=== PATIENT | female | born 1940 | race Caucasian/White ===

== ENCOUNTER → 2016-08-20 | Outpatient (CLI) | payer MEDICARE, OTHER ==
[~2016-08-20] MED LIST: ACETAMINOPHEN500 M4 PO; ASPIRIN81 M1 PO; ATENOLOL PO; ATENOLOL25 MG PO; D3 DOTS2000 UNIT PO; FIBER625 M2 PO; FISH OIL 1,001000 M1 PO; FISH OIL 1,2001 EAC1 PO; GENTEAL PM OIN3.5 GM OU; LIPITOR40 MG PO; LOW DOSE ASPIRI81 M1 PO; METAMUCIL PO; MULTI VITAMIN1 EACH PO; MULTIVITAMIN1 UDCAP PO; NORVASC2.5 MG PO; OMEPRAZOLE40 M1 PO; OPTIVE EYE DROPS5 ML OU; PAIN RELIEF500 MG PO; PRILOSEC20 M1 PO; TRAMADOL HCL50 M2 PO; VAGIFEM10 MCG VG; VESICARE PO; VITAMIN D400 UNI2 PO
--- NOTE | ~2016-08-20 | MY11 ---
[facility] A Service of [facility] RADIOLOGY TEXT RESULTS PATIENT: ALLEN PEÑA LOCATION: [facility] : 44 UNIT #: [id number] AGE: [address]: Tegan Warren MD SEX: F ORDER DR: [id number] [facility] [address] [place], [place] [address] [id number] O MR#: [id number] Acc #: [id number] NAME: ALLEN PEÑA : 1940 SEX: F STUDY DATE/TIME: 08/20/2016 10:28 UNIT: [facility] ROOM: STUDY DESCRIPTION: MY Mammogram Screening Dig [place] Attending Physician: Tegan Warren M.D. Referring Physician: Tegan Warren M.D. Ordering Physician: Tegan Warren M.D. Primary Care Physician: Tegan Warren M.D. MEDICAL IMAGING REPORT This report is preliminary unless electronic signature is present EXAM Digital screening mammogram 08/20/2016. HISTORY 76-year-old woman no risk elevation. Annual screen. COMPARISON Mammograms date to 02/10/2006 with most recent 08/17/2015 FINDINGS Digital imaging of each breast was completed utilizing a two-view examination of each breast in craniocaudal and mediolateral-oblique projections. Review and interpretation of digital mammograms include a second review in conjunction with FDA-approved CAD device. There is a normal parenchymal presentation bilaterally consistent with the patient's age. There are no breast masses imaged and no parenchymal asymmetry is visualized. There are no suspicious microcalcifications and I see no focal architectural disturbance. IMPRESSION Negative screening digital mammogram. One-year followup recommended. Patients over the age of 40 are entered into a reminder system with target due date for the next mammogram. A result letter will also be sent to the patient. BIRADS: 1 Negative ADDENDUM Breast parenchyma is fatty replaced Dictated by... Rhett Velazco M.D. [facility] A Service [facility] RADIOLOGY TEXT RESULTS PATIENT: ALLEN PEÑA LOCATION: [facility] : 42 UNIT #: [id number] AGE: [address]: Tegan Warren MD SEX: F ORDER DR: THIS IS AN ELECTRONICALLY VERIFIED REPORT Rhett Velazco M.D. at 08/20/2016 12:[address] TD: 08/20/2016 11:38 JOB #: [id number] MEDICAL IMAGING REPORT Page 1 of 1 COPY
== END | disposition home or self-care (01) ==
LOC: CWCC 10:02
DX: Z12.31 Encounter for screening mammogram for malignant neoplasm of breast (principal); R92.8 Other abnormal and inconclusive findings on diagnostic imaging of breast
CPT/HCPCS: G0202

== ENCOUNTER 2017-01-31 10:47 | Emergency (ER) | payer MEDICARE, OTHER ==
[~2017-01-31] VITALS: Ht 157.5 cm; Wt 70.3 kg
--- NOTE | ~2017-01-31 | CR170 ---
[facility] A Service of [facility] RADIOLOGY TEXT RESULTS PATIENT: ALLEN PÑEA LOCATION: [facility] : 44 UNIT #: [id number] AGE: [address]: Juana Nunes APRN SEX: F ORDER DR: [id number] [facility] [address] [place], [place] [address] [id number] E MR#: [id number] Acc #: [id number] NAME: ALLEN PEÑA : 1940 SEX: F STUDY DATE/TIME: 01/31/2017 11:31 UNIT: [facility] ROOM: STUDY DESCRIPTION: CR Knee 2 Views Rt Attending Physician: Juana Nunes A.P.R.N. Ordering Physician: Ed Doctor [id number] [facility] Primary Care Physician: Yair Merritt M.D. MEDICAL IMAGING REPORT This report is preliminary unless electronic signature is present EXAM Right knee INDICATIONS Right knee pain. 1-week duration. FINDINGS 2 views of the right knee without comparison. There is no acute fracture dislocation or effusion. No foreign body. There is mild osteoarthritis of the knee. IMPRESSION No acute findings. Dictated by... Kelvin Landrum M.D. THIS IS AN ELECTRONICALLY VERIFIED REPORT Kelvin Landrum M.D. at 02/01/2017 1:25 PM RPNacho/bartolo TD: 02/01/2017 05:05 JOB #: [id number] MEDICAL IMAGING REPORT Page 1 of 1 COPY
== END 2017-01-31 12:35 | disposition home or self-care (01) ==
LOC: CED 10:47 → CFTX 10:47
DX: M25.561 Pain in right knee (principal); I10 Essential (primary) hypertension; R78.5 Finding of other psychotropic drug in blood; Z90.710 Acquired absence of both cervix and uterus; Z79.899 Other long term (current) drug therapy; Z79.82 Long term (current) use of aspirin
CPT/HCPCS: 73560; 99283